=== PATIENT | female | born 1985 | race Hispanic/Latino ===

== ENCOUNTER 2017-09-27 20:55 | Emergency (ER) | payer OTHER ==
[~2017-09-27] VITALS: Ht 157.5 cm; Wt 60.3 kg
--- NOTE | 2017-09-27 22:49 | ED AMS/SEIZURE/WEAK/DIZZY ---
History of Present Illness General Chief Complaint: Dizziness Stated Complaint: VOMITING AND DIZZY Source: patient Exam Limitations: language barrier Vital Signs & Intake/Output Vital Signs & Intake/Output Vital Signs Date Time Temp Pulse Resp B/P B/P Pulse O2 O2 Flow FiO2 Mean Ox Delivery Rate 09/28 0110 97.0 67 16 112/76 98 Room Air 09/27 2306 96.8 71 20 114/70 100 Room Air 09/27 2119 96.8 83 16 112/74 98 ED Intake and Output 09/28 0000 09/27 1200 Intake Total Output Total Balance Patient 133 lb Weight Weight Reported by Patient Measurement Method Allergies Coded Allergies: No Known Allergies (09/27/17) Reconcile Medications Ketorolac Tromethamine 10 MG TABLET 1 TAB PO TID PRN PAIN RECEIVED IM IN ER Ondansetron HCl (Zofran) 4 MG TABLET 1 TAB PO Q6-8P PRN NAUSEA Triage Note: PT STATES THAT SHE IS DIZZY AND VOMITTING. PT STATES THAT THIS STARTED TODAY AT WORK. PT STATES THAT SHE CAUGHT HERSELF PRIOR TO FALLING AND DENIES LOC. Triage Nurses Notes Reviewed? yes Onset: Abrupt Duration: constant Timing: recent history Injury Environment: home Severity: mild Severity Numbers: 3 : No Patient currently breastfeeds: No HPI: Patient is a 31-year-old female who is primarily Albanian-speaking only who presents emergency room with concerns of abdominal pain that began today with social his symptoms of nausea. Patient is remote status post cholecystectomy Patient is referring to her pain as "annoyance, denies any alcohol use (Renzo Barth) Past History Travel History Traveled to [place] past 21 day No Medical History Any Pertinent Medical History? see below for history Neurological: migraine Respiratory: asthma Surgical History Surgical History: cholecystectomy Psychosocial History What is your primary language Albanian Tobacco Use: Never used Family History Hx Contributory? No (Renzo Barth) Review of Systems Review of Systems Constitutional: Reports: no symptoms. EENTM: Reports: no symptoms. Respiratory: Reports: no symptoms. Cardiovascular: Reports: no symptoms. GI: Reports: see HPI. Genitourinary: Reports: no symptoms. Musculoskeletal: Reports: no symptoms. Skin: Reports: no symptoms. Neurological/Psychological: Reports: no symptoms. Hematologic/Endocrine: Reports: no symptoms. Immunologic/Allergic: Reports: no symptoms. All Other Systems: Reviewed and Negative (Renzo Barth) Physical Exam Physical Exam General Appearance: no apparent distress, alert, comfortable Head: atraumatic Eyes: Bilateral: normal appearance. Ears, Nose, Throat: hearing grossly normal Neck: normal inspection Respiratory: normal breath sounds, chest non-tender Cardiovascular: regular rate/rhythm Gastrointestinal: MODERATE RUQ/EPIGASTRIC PAIN NO RLQ PAIN Back: normal inspection Skin: intact, normal color, warm/dry Core Measures ACS in differential dx? No CVA/TIA Diagnosis No Sepsis Present: No Sepsis Focused Exam Completed? No (Sukumar RIOS,Renzo) Progress Differential Diagnosis: alcohol intoxication, anemia, benign positional vertigo, CVA/stroke, dehydration, drug intoxication, encephalitis, electrolyte imbalance, GI bleed, hypoglycemia, hypoxia, intracranial Hem., intracranial mass/tumor, labrynthitis, meningitis, Meniere's disease, migraine HACKETT, multiple sclerosis, pneumonia, postural hypotension, presyncope, post-traumatic vertigo, sepsis, seizure disorder, subarachnoid Hem., UTI/pyelo, vertebrobasilar insuff Plan of Care: Orders Procedure Date/time Status Add-on Test (ER Only) 09/28 0000 Active LIPASE 09/27 2322 Complete AMYLASE 09/27 232 Complete HUMAN BETA HCG SCREEN 09/27 230 Complete COMPREHENSIVE METABOLIC PANEL 09/27 230 Complete CBC WITHOUT DIFFERENTIAL 09/27 2306 Complete Laboratory Tests 09/27/17 2322: Anion Gap 10, Estimated GFR > 60, BUN/Creatinine Ratio 28.3 H, Glucose 89, Calcium 9.2, Total Bilirubin 0.7, AST 22, ALT 25, Alkaline Phosphatase 34, Total Protein 7.8, Albumin 4.4, Globulin 3.4, Albumin/Globulin Ratio 1.3, Amylase 107, Lipase 205, Total Beta HCG NEGATIVE, CBC w Diff NO MAN DIFF REQ, RBC 4.22, MCV 93.5, MCH 32.0 H, MCHC 34.3, RDW 14.0, MPV 7.8, Gran % 63.5, Lymphocytes % 26.8 , Monocytes % 8.8, Eosinophils % 0.5, Basophils % 0.4, Absolute Granulocytes 4.6 , Absolute Lymphocytes 1.9, Absolute Monocytes 0.6, Absolute Eosinophils 0, Absolute Basophils 0 Patient upon initial examination and resting comfortably at bedside no apparent distress blood work was unremarkable CT scan currently is pending CT scan was resulted for concerns of ovarian cyst discussed results with patient she was given copies of CT scan and blood work she has a follow-up appointment established tomorrow with her [facility] Patient was able tolerate by mouth upon discharge Diagnostic Imaging: Viewed by Me: CT Scan. Radiology Impression: acute abnormality Initial ED EKG: none Comments: PATIENT: TONY LOPES PRESENT AGE: 31 PATIENT ACCOUNT NO: [id number] : 86 LOCATION: ER ORDERING PHYSICIAN: Renzo RIOS SERVICE DATE: 09/27/17 EXAM TYPE: CAT - CT ABD & PELVIS W IV CONTRAST EXAMINATION: CT ABDOMEN AND PELVIS WITH CONTRAST CLINICAL INFORMATION: Abdominal pain, nausea COMPARISON: None TECHNIQUE: Multidetector volumetric imaging was performed of the abdomen and pelvis following IV administration of 95 mL of Optiray 320 intravenous contrast. Sagittal and coronal reformatted images were obtained on the technologist's workstation. DLP: 279.97 mGy-cm FINDINGS: LUNG BASES: On image there is a left lung nodule measuring up to 6 mm in length. LIVER, GALLBLADDER, AND BILIARY TREE: The liver is normal in size, shape, and attenuation. There are 2 subcentimeter hypoattenuating lesions in the liver, too small to characterize. No biliary ductal dilatation is present. Patient is status post cholecystectomy. PANCREAS: Unremarkable. SPLEEN: Unremarkable. ADRENAL GLANDS: Unremarkable. KIDNEYS AND URETERS: The kidneys are normal in size, shape, and attenuation. No hydronephrosis, hydroureter, or obstructing calculi seen. No perinephric stranding. BLADDER: Unremarkable. GASTROINTESTINAL TRACT: The small and large bowel are unremarkable. The appendix is unremarkable. ABDOMINAL WALL: No significant hernia is appreciated. LYMPH NODES: Normal. VASCULAR: Unremarkable. PELVIC VISCERA: There is a right adnexal mass measuring 2.9 x 2.5 x 3.0 cm containing fat peripherally and fluid density centrally with a punctate calcification. There is a small to moderate volume of pelvic free fluid; fluid density is at the upper limits of simple fluid. OSSEOUS STRUCTURES: Unremarkable. IMPRESSION: 1. Partially fat-containing right adnexal mass measuring 2.9 x 2.5 x 3.0 cm, most consistent with an ovarian dermoid. Small to moderate volume of pelvic free fluid is present which is nonspecific and may be physiologic, though free fluid can also be seen in the setting of dermoid rupture. 2. Left lung nodule measuring up to 6 mm, nonspecific and statistically likely benign in the absence of additional clinical risk factors. DICTATED BY: Kiko Jolly MD DATE/TIME DICTATED:09/28/1727 FIOS LINE INSTALLER:JOSÉ MIGUEL DATE/TIME TRANSCRIBED:09/28/1727 CONFIDENTIAL, DO NOT COPY WITHOUT APPROPRIATE AUTHORIZATION. <Electronically signed in Other Vendor System> SIGNED BY: Kiko Jolly MD 09/28/17 0043 (Renzo Barth) Departure Departure Disposition: HOME OR SELF CARE Condition: Stable Clinical Impression Primary Impression: Ovarian cyst Referrals: Geena Tariq APRN (PCP/Family) Additional Instructions: As discussed begin the prescription of ketorolac for pain and inflammation and the prescription of Zofran for nausea. Prescription is waiting at [facility]. Follow-up with your established [facility] appointment tomorrow please provide them with blood work and CT scan imaging. If symptoms worsen return to emergency room Departure Forms: Customer Survey General Discharge Information Prescriptions: Current Visit Scripts Ketorolac Tromethamine 1 TAB PO TID PRN PAIN #15 TAB RECEIVED IM IN ER Ondansetron HCl (Zofran) 1 TAB PO Q6-8P PRN NAUSEA #5 TAB (Renzo Barth) PA/FLATWORK FINISHER Co-Sign Statement Statement: ED Attending supervision documentation- [] I saw and evaluated the patient. I have also reviewed all the pertinent lab results and diagnostic results. I agree with the findings and the plan of care as documented in the PA's/FLATWORK FINISHER's documentation. [X] I have reviewed the ED Record and agree with the PA's/FLATWORK FINISHER's documentation. [] Additions or exceptions (if any) to the PAs/FLATWORK FINISHER's note and plan are summarized below: [] (Calderon RUVALCABA,Zack Membreno)
[2017-09-27 23:29] LABS: ABSOLUTE BASOPHIL COUNT 0 /CUMM (0.0-0.2); ABSOLUTE EOSINOPHIL COUNT 0 /CUMM (0.0-0.7); ABSOLUTE GRANULOCYTE CT 4.6 /CUMM (1.4-6.5); ABSOLUTE LYMPH COUNT 1.9 /CUMM (1.2-3.4); ABSOLUTE MONOCYTE COUNT 0.6 /CUMM (0.10-0.60); BASOPHIL % 0.4 % (0.0-2.0); EOSINOPHIL % 0.5 % (0-5); GRANULOCYTE % 63.5 % (42.2-75.2); HEMATOCRIT 39.4 % (37-47); MEAN CORPUSCULAR HGB CONC 34.3 G/DL (33.0-37.0); MEAN CORPUSCULAR VOLUME 93.5 FL (81.0-99.0); MEAN PLATELET VOLUME 7.8 FL (7.4-10.4); PLATELET COUNT 226 /CUMM (130-400); RED BLOOD CELL CT 4.22 /CUMM (4.20-5.40); WHITE BLOOD CELL COUNT 7.2 /CUMM (4.8-10.8)
--- NOTE | 2017-09-28 00:43 | CT SCAN REPORT ---
EXAMINATION: CT ABDOMEN AND PELVIS WITH CONTRAST CLINICAL INFORMATION: Abdominal pain, nausea COMPARISON: None TECHNIQUE: Multidetector volumetric imaging was performed of the abdomen and pelvis following IV administration of 95 mL of Optiray 320 intravenous contrast. Sagittal and coronal reformatted images were obtained on the technologist's workstation. DLP: 279.97 mGy-cm FINDINGS: LUNG BASES: On image 1/96 there is a left lung nodule measuring up to 6 mm in length. LIVER, GALLBLADDER, AND BILIARY TREE: The liver is normal in size, shape, and attenuation. There are 2 subcentimeter hypoattenuating lesions in the liver, too small to characterize. No biliary ductal dilatation is present. Patient is status post cholecystectomy. PANCREAS: Unremarkable. SPLEEN: Unremarkable. ADRENAL GLANDS: Unremarkable. KIDNEYS AND URETERS: The kidneys are normal in size, shape, and attenuation. No hydronephrosis, hydroureter, or obstructing calculi seen. No perinephric stranding. BLADDER: Unremarkable. GASTROINTESTINAL TRACT: The small and large bowel are unremarkable. The appendix is unremarkable. ABDOMINAL WALL: No significant hernia is appreciated. LYMPH NODES: Normal. VASCULAR: Unremarkable. PELVIC VISCERA: There is a right adnexal mass measuring 2.9 x 2.5 x 3.0 cm containing fat peripherally and fluid density centrally with a punctate calcification. There is a small to moderate volume of pelvic free fluid; fluid density is at the upper limits of simple fluid. OSSEOUS STRUCTURES: Unremarkable. IMPRESSION: 1. Partially fat-containing right adnexal mass measuring 2.9 x 2.5 x 3.0 cm, most consistent with an ovarian dermoid. Small to moderate volume of pelvic free fluid is present which is nonspecific and may be physiologic, though free fluid can also be seen in the setting of dermoid rupture. 2. Left lung nodule measuring up to 6 mm, nonspecific and statistically likely benign in the absence of additional clinical risk factors.
[2017-09-28] MEDS ORDERED: KETOROLAC TROME10 M1 PO (00:58)
[2017-09-28] MEDS ORDERED: ZOFRAN4 M2 PO (00:58)
[2017-09-28 01:10] VITALS: BP 112/76
== END 2017-09-28 01:10 ==
LOC: ERH 20:55
PROVIDERS: Physician Assistant
DX: N83.201 Unspecified ovarian cyst, right side (principal)
CPT/HCPCS: 74177; 96361; 96374; 96375; J1885; J2405